=== PATIENT | female | born 2000 | race African-American/Black ===

== ENCOUNTER 2022-10-24 23:02 | Emergency (ER) | payer MEDICAID ==
[2022-10-25 00:24] LABS: CORONAVIRUS COVID-19 NAA NEGATIVE (NEGATIVE); INFLUENZA A NAA POSITIVE (NEGATIVE); INFLUENZA B NAA NEGATIVE (NEGATIVE); RESPIRATORY SYNCYTIAL VIR NAA NEGATIVE (NEGATIVE)
== END 2022-10-25 00:53 | disposition home or self-care (01) ==
LOC: MW.ED 23:02
DX: J10.1 Influenza due to other identified influenza virus with other respiratory manifestations (principal); Z88.8 Allergy status to other drugs, medicaments and biological substances; Z20.822 Contact with and (suspected) exposure to COVID-19
CPT/HCPCS: 0241U; 99283

== ENCOUNTER 2023-03-28 12:10 | Emergency (ER) | payer MEDICAID | END 2023-03-28 13:12 | disposition home or self-care (01) | LOC: MW.ED 12:10 | DX: M79.2 Neuralgia and neuritis, unspecified (principal); R20.2 Paresthesia of skin; Z88.8 Allergy status to other drugs, medicaments and biological substances | CPT/HCPCS: 99283 ==

== ENCOUNTER 2023-06-16 14:31 | Emergency (ER) | payer MEDICAID ==
[2023-06-16 16:06] LABS: BASOPHILS ABSOLUTE AUTO 0.1 K/uL (0.0-0.1); BASOPHILS PERCENT AUTO 0.8 % (0.0-1.5); EOSINOPHILS ABSOLUTE AUTO 0.2 K/uL (0.0-0.7); EOSINOPHILS PERCENT AUTO 1.6 % (0.0-7.0); HEMATOCRIT 37.5 % (36.0-46.0); HEMOGLOBIN 12.3 g/dL (12.0-16.0); LYMPHOCYTES ABSOLUTE AUTO 3.7 K/uL (0.6-2.4); LYMPHOCYTES PERCENT AUTO 33.6 % (16.0-40.0); MEAN CORPUSCULAR HEMOGLOBIN 28.7 pg (27.0-32.0); MEAN CORPUSCULAR HGB CONC 32.8 g/dL (31.0-37.0); MEAN CORPUSCULAR VOLUME 87.6 fL (80.0-98.0); MONOCYTES ABSOLUTE AUTO 0.5 K/uL (0.0-0.8); MONOCYTES PERCENT AUTO 4.3 % (0.0-15.0); NEUTROPHILS ABSOLUTE AUTO 6.5 K/uL (1.4-5.7); NEUTROPHILS PERCENT AUTO 59.7 % (48.0-80.0); NRBC ABSOLUTE 0 K/uL; PLATELET COUNT,PLT 329 K/uL (150-400); RED BLOOD CELL COUNT 4.28 M/uL (4.30-5.90); WHITE BLOOD CELL COUNT,WBC 10.91 K/uL (4.0-11.0)
[2023-06-16] MEDS ORDERED: LORazepam 1 MG Tab PO ONE (16:35)
[2023-06-16 16:41] LABS: BILIRUBIN,URINE NEGATIVE (NEGATIVE); COLOR,URINE YELLOW; GLUCOSE,URINE NEGATIVE (NEGATIVE); KETONES,URINE NEGATIVE (NEGATIVE); LEUKOCYTE ESTERASE,URINE NEGATIVE (NEGATIVE); NITRITE,URINE NEGATIVE (NEGATIVE); OCCULT BLOOD,URINE NEGATIVE (NEGATIVE); PH,URINE 6.5 (5.0-8.0); PROTEIN,URINE NEGATIVE (NEGATIVE); UROBILINOGEN,URINE 0.2 EU/dL (<2.0)
[2023-06-16 16:43] LABS: APPEARANCE,URINE SLT CLOUDY
[2023-06-16 16:50] LABS: A/G RATIO 0.9 (0.9-1.6); ACETAMINOPHEN <2.0 ug/mL; ALANINE AMINOTRANSFERASE,ALT 29 IU/L (14-63); ALBUMIN 3.6 g/dL (3.4-5.0); ALKALINE PHOSPHATASE 77 U/L (46-116); ASPARTATE AMNIOTRANSFERASE,AST 15 IU/L (15-37); BILIRUBIN TOTAL 0.2 mg/dL (0.2-1.0); BLOOD UREA NITROGEN,BUN 9 mg/dL (7.0-18.0); CALCIUM 9.1 mg/dL (8.5-10.1); CARBON DIOXIDE,CO2 24.3 mmol/L (21.0-32.0); CHLORIDE,CL 103 mmol/L (98-107); CREATININE 0.9 mg/dL (0.6-1.0); ETHANOL BLOOD MEDICAL <3 mg/dL; GLUCOSE RANDOM 115 mg/dL (74-106); MAGNESIUM 1.9 mg/dL (1.8-2.4); POTASSIUM,K 3.8 mmol/L (3.5-5.1); PROTEIN TOTAL,TP 7.5 g/dL (6.4-8.2); SODIUM,NA 139 mmol/L (136-145)
[2023-06-16 16:51] LABS: AMPHETAMINES SCREEN, URINE NEGATIVE (CUTOFF=500); BARBITURATE SCREEN,URINE NEGATIVE (CUTOFF=200); BENZODIAZEPINES SCREEN,URINE NEGATIVE (CUTOFF=150); BUPRENORPHINE SCREEN,URINE NEGATIVE (CUTOFF=10); METHADONE SCREEN, URINE NEGATIVE (CUTOFF=200); METHAMPHETAMINES SCREEN, URINE NEGATIVE (CUTOFF=500); OXYCODONE SCREEN,URINE NEGATIVE (CUT0FF=100); PCP SCREEN,URINE NEGATIVE (CUTOFF=25); PROPOXYPHENE SCREEN,URINE NEGATIVE (CUTOFF=300); THC SCREEN,URINE 20 NG/ML PRESUMPTIVE POSITIVE (CUTOFF=50)
[2023-06-16 16:54] LABS: ESTIMATED GFR 94 mL/min (>60)
[2023-06-16 17:08] LABS: BACTERIA,URINE 1+ (NEGATIVE); EPITHELIAL CELLS,URINE MANY (NONE-FEW); RBC,URINE 0-2 (0-2/HPF)
[2023-06-17] MEDS ORDERED: LORazepam 1 MG Tab PO ONE (04:41)
== END 2023-06-17 04:55 ==
LOC: MW.ED 14:31
DX: F31.9 Bipolar disorder, unspecified (principal); Z88.8 Allergy status to other drugs, medicaments and biological substances; Z79.899 Other long term (current) drug therapy
CPT/HCPCS: 36415; 80053; 80143; 80178; 80179; 80305; 80307; 81001; 81025; 83735; 84443; 85025; 93005; 99285; A9270; 93010; 99283

== ENCOUNTER 2023-12-16 11:30 | Emergency (ER) | payer MEDICAID ==
[2023-12-16 12:01] LABS: BILIRUBIN,URINE NEGATIVE (NEGATIVE); COLOR,URINE YELLOW; GLUCOSE,URINE NEGATIVE (NEGATIVE); KETONES,URINE NEGATIVE (NEGATIVE); LEUKOCYTE ESTERASE,URINE NEGATIVE (NEGATIVE); NITRITE,URINE NEGATIVE (NEGATIVE); OCCULT BLOOD,URINE NEGATIVE (NEGATIVE); PROTEIN,URINE NEGATIVE (NEGATIVE); UROBILINOGEN,URINE 0.2 EU/dL (<2.0)
[2023-12-16 12:02] LABS: APPEARANCE,URINE HAZY
== END 2023-12-16 12:33 | disposition home or self-care (01) ==
LOC: MW.ED 11:30
DX: N61.0 Mastitis without abscess (principal); K04.7 Periapical abscess without sinus; R11.0 Nausea; Z32.02 Encounter for pregnancy test, result negative; Z79.899 Other long term (current) drug therapy; Z88.8 Allergy status to other drugs, medicaments and biological substances
CPT/HCPCS: 81003; 81025; 99283

== ENCOUNTER 2024-03-05 08:17 | Emergency (ER) | payer SELFPAY | END 2024-03-05 09:15 | disposition left against medical advice (07) | LOC: MW.ED 08:17 | DX: Z53.21 Procedure and treatment not carried out due to patient leaving prior to being seen by health care provider (principal) ==

== ENCOUNTER 2024-07-08 18:47 | Emergency (ER) | payer MEDICAID ==
[2024-07-08] MEDS: LORazepam 1 MG Tab PO ONE (19:32)
== END 2024-07-08 20:09 | disposition home or self-care (01) ==
LOC: MW.ED 18:47
DX: F41.0 Panic disorder [episodic paroxysmal anxiety] (principal); Z79.899 Other long term (current) drug therapy; Z75.8 Other problems related to medical facilities and other health care; Z88.8 Allergy status to other drugs, medicaments and biological substances
CPT/HCPCS: 99283; A9270

== ENCOUNTER 2024-08-13 06:45 | Emergency (ER) | payer MEDICAID | END 2024-08-13 08:08 | disposition home or self-care (01) | LOC: MW.ED 06:45 | DX: N61.1 Abscess of the breast and nipple (principal); Z79.899 Other long term (current) drug therapy; Z88.8 Allergy status to other drugs, medicaments and biological substances | CPT/HCPCS: 99283 ==

== ENCOUNTER 2024-11-26 09:10 | Day surgery (SDC) | payer MEDICAID ==
[~2024-11-26 09:10] MED LIST: Albuterol 0.083% 2.5 MG/3 ML Neb Soln NEB PRN; HYDROmorphone 1 MG/ML Syringe IVPUSH PRN; Metoclopramide 10 MG/2 ML SDV IVPUSH PRN; Morphine 2 MG/ML SYRINGE IVPUSH PRN; Naloxone 0.4 MG/ML SDV IVPUSH PRN; Ondansetron 4 MG/2 ML SDV IVPUSH PRN; Phenylephrine HCl In 0.9% NaCl 1 MG/10 ML Syringe IVPUSH PRN; Scopalamine 1mg/3day Transdermal Patch TOP ONE; Sodium Chloride 0.9% 10 ML Syringe FLUSH PRN; Sodium Chloride 0.9% 2.5 ML Syringe FLUSH PRN; Sodium Chloride 0.9% 20 ML SDV IV PRN; ceFAZolin 2 GM in Sodium Chloride 0.9% 50 ML IV ONE; fentaNYL 50 MCG/ML SDV IVPUSH PRN
[2024-11-26] MEDS: Lactated Ringers 1,000 ML IV SCH (09:40)
[2024-11-26] MEDS ORDERED: fentaNYL 100 MCG/2 ML SDV ONE (10:32)
[2024-11-26] MEDS ORDERED: Propofol 200 MG/20 ML SDV ONE (10:32)
[2024-11-26] MEDS ORDERED: dexmedeTOMIDine HCl 200 MCG/2 ML SDV ONE (10:33)
[2024-11-26] MEDS ORDERED: propofoL 500 MG/50 ML 50 ML ONE (10:34)
[2024-11-26] MEDS ORDERED: ceFAZolin 1 GM Vial ONE (10:56)
[2024-11-26] MEDS ORDERED: Bupivacaine 0.5% 30 ML SDV ONE (10:56)
[2024-11-26] MEDS ORDERED: ceFAZolin 2 GM Vial ONE (11:51)
[2024-11-26] MEDS ORDERED: Ketamine HCL/NACL, ISO-OSM 50 MG/5 ML Syringe ONE (11:53)
[2024-11-26] MEDS ORDERED: Ketorolac 30 MG/ML SDV ONE (12:02)
== END 2024-11-26 13:15 | disposition home or self-care (01) ==
LOC: MW.SDS 09:10
PROVIDERS: ATTEND Surgery
DX: N61.1 Abscess of the breast and nipple (principal); E66.9 Obesity, unspecified; F17.290 Nicotine dependence, other tobacco product, uncomplicated; Z88.8 Allergy status to other drugs, medicaments and biological substances; Z68.34 Body mass index [BMI] 34.0-34.9, adult; Z79.899 Other long term (current) drug therapy
CPT/HCPCS: 19020; 81025; 87070; 87075; 87205; J0131; J0665; J0690; J1885; J2704; J3010; J7120; J3490